=== PATIENT | female | born 1990 | race Caucasian/White ===

== ENCOUNTER 2025-08-18 10:15 | Outpatient (AMB) | payer BC, SELFPAY ==
[2025-08-18 10:36] VITALS: BP 104/72; PULSE 82; RESP 18; TEMP 36.7; O2SAT 97; BMI 33.7
--- NOTE | 2025-08-18 10:36 | OBCLNT_ITS ---
Vital Signs 08/18/25 10:36 Height 1.55 m Height Method Stated Weight 80.853 kg Weight Measurement Method Standing Scale BMI 33.7 BP 104/72 Blood Pressure Source Automatic Cuff Blood Pressure Location Right Upper Arm Position Sitting Respiration 18 Pulse 82 Pulse Source Monitor Temp 98.0 F Temp Source Temporal Artery Scan Pulse Oximetry (%) 97 Oxygen Delivery Method Room Air Allergies/Home Meds Allergies & Medications Allergies No Known Allergies Allergy (Verified 08/18/25 10:42) Medication Reconciliation hydrocodone 5 mg-acetaminophen 325 mg tablet 1 tab PO Q6H #20 tabs 03/03/21 [Rx Confirmed 08/18/25] Intake Visit Data Collection New Patient or Established: New Patient (never been to [facility]) Reason for Visit:: OBI TRANSFER Seen by Clinical Staff ONLY (RN/MA): No Director Of Curriculum Required: No Do You Feel Safe at Home: Yes Authorities Contacted: N/A PCP or OBGYN visit in last 3 months: No Hx Now: Yes Are you currently on any form of Control: No Pain Present Currently: Yes Pain Location: Abdomen Pain Scale Used: Bustamante-Sanabria/Numerical Pain scale:: 5 Smoking Status Smoking Status: Never smoker Immunizations Flu Vaccine in the Last 12 Months: No Flu Vaccine Exclusion Criteria: No Exclusion Criteria Questionnaires Covid-19 Vaccine Questionnaire Has patient been vacinated for Covid-19 Have you been vacinated for Covid-19: No PHQ-9 PHQ-2 Over the last 2 weeks, how often have you been bothered by any of the following problems? 1. Little interest or pleasure in doing things: not at all 2. Feeling down, depressed, or hopeless: not at all Total score: 0 PHQ-9 3. Trouble falling or staying asleep, or sleeping too much: Not at all 4. Feeling tired or having little energy: Not at all 5. Poor appetite or overeating: Not at all 6. Feeling bad about yourself - or that you are a failure or have let yourself or your family down: Not at all 7. Trouble concentrating on things, such as reading the newspaper or watching television: Not at all 8. Moving or speaking so slowly that other people could have noticed? - Or the opposite - being so fidgety or restless that you have been moving around a lot more than usual: not at all 9. Thoughts that you would be better off or of hurting yourself in some way: Not at all Total score: 0 If you checked off any problems, how difficult have these problems made it for you to do your work, take care of things at home, or get along with other people?: not difficult at all Source: Developed by Drs. Aaron Hansen, Dolores Mcnamara, Chapincito Cevallos and colleagues, with an educational arian from [employer]. Depression screen completed yes Social History Living Situation History Marital Status: Lives With: Family Housing: House Tobacco History Smoking Status: Never smoker Second Hand Smoke Exposure: No Alcohol History Alcohol Intake: Never Domestic Abuse History Do You Feel Safe at Home: Yes History of Present Illness HPI Narrative First appointment, cramping and clear liquid discharge resembling mucus, nausea and gagging all day Jody Rueda is a 27-year-old at 11 weeks and 2 days gestation based on last menstrual period of May 28, 2025, presenting for her first pr egnancy appointment. She reports experiencing cramping and clear liquid discharge that resembles mucus, with no associated blood. She is also experiencing nausea and gagging throughout the day but is able to keep food down and has not tried any home remedies for these symptoms. 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 She had a D&C procedure for her last miscarriage and is uncertain whether a recurrent miscarriage workup was completed. She demonstrates adherence to her prescribed progesterone regimen. She has a history of three previous pregnancies, all resulting in full-term vaginal births with living children. Her estimated due date for the current is March 04, 2026. The patient denies smoking, alcohol use, or recreational drug use. She reports no medical problems or known allergies. She is in a monogamous relationship and had a normal Pap smear in 2024 with no history of sexually transmitted diseases or fertility problems. Her genetic screening questionnaire was negative. Medical History: - No significant medical problems reported Surgical History: - Gallbladder surgery in 2020 - Dilation and curettage for miscarriage Obstetric History: - GPAL: A3 L3 - Three previous full-term vaginal births resulting in living children - Three miscarriages at 10 weeks, 12 weeks, and one prior to first child - Dilation and curettage performed for last miscarriage Medications: - Progesterone 200 mg by mouth at night Social History: - Does not work - In a monogamous relationship - Denies tobacco, alcohol, or illicit drug use Diagnostic Test Results and Labs: - Obstetric ultrasound: Gestational age 11 weeks 2 days, heart rate 151 bpm, normal round gestational sac, closed long cervix [employer]: Past Medical History Past Medical History: No Hx Neurological Disorders, No Hx Cardiac Disorders, No Hx Cancer, No Hx Blood Disorders, No Hx Gastrointestinal Disorders, No Hx Renal Disease, No Hx Diabetes Mellitus Type 1 and No Hx Diabetes Mellitus Type 2 OB Initial Visit OB Flowsheet OB Flowsheet Initial Weight: Not Recorded Date -?-?-?-?-?-?-?-?-?-?-?-?- EGA Weight BP Alb Glu CTX Pres Fundal ht FHR Mov Dilation Station Effacement Hx Notes Visit Note 08/18/25 -?-?-?-?-?-?-?-?-?-?-?-?- 11w 5d 80.853 kg 104/72 Pl see PN Menstrual History Menstrual reliability: definite Flow: normal Menstrual regularity: regular Monthly: Yes Age at menarche: 9 On control pills at conception: No OB History : 7 Para: 3 Hx Total # of Abortions (Spontaneous & Elective): 1 # of Living Children: 3 Delivery History 1st : Child's name: DARIN RUEDA date: 03/20/15 sex: female Gestational age at delivery (weeks): 40 Delivery type: vaginal weight (lbs): 3175.147 g History of depression before or after : No 2nd : Child's name: TONI RUEDA date: 09/04/17 sex: male Gestational age at delivery (weeks): 37 Delivery type: vaginal weight (lbs): 4082.331 g History of depression before or after : Yes 3rd : sex: male (EMILIA RUEDA) Gestational age at delivery (weeks): 38 Delivery type: vaginal weight (lbs): 3628.739 g History of depression before or after : No Infection History & Risk Evaluation History of STDs: none Patient or partner has history of Genital Herpes: No Genetic Screening & History Genetic Screening/Teratology Counseling - Includes patient, baby's father, or anyone in either family with: 1. Patient's age 35 years or older as of estimated date of delivery: Yes 2. Thalassemia (Romansh, Ecuadorean, Mediterranean, or Background); MCV less than 80: No 3. Neural Tube Defect (Meningomyelocele, Spina Bifida, or Anencephaly): No 4. Congenital Heart Defect: No 5. Down Syndrome: No 6. Eusebio-Sachs (Ashkenazi Alevism, Cajun, [place]): No 7. Bobo Disease (Ashkenazi Alevism): No 8. Familial Dysautonomia (Ashkenazi Alevism): No 9. Sickle Cell Disease or Trait (): No 10. Hemophilia or other blood disorders: No 11. Muscular Dystrophy: No 12. Cystic Fibrosis: No 13. Le[place]anau's Chorea: No 14. Mental Retardation/Autism: No 15. Other inherited genetic or chromosomal disorder: No 16. Maternal Metabolic Disorder (EG,TYPE 1 Diabetes, PKU): No 17. Patient or baby's father had a child with defects not listed above: No 18. Recurrent loss or a stillbirth: No 19. Medications (including supplements, vitamins, herbs or otc drugs)/illicit/recreational drugs/alcohol since last menstrual period: No 20. Any other: No Infection History Other (see comments) Source: [employer] Exam General General Appearance: alert, in no apparent distress and healthy appearing Head Head exam: atraumatic Neck Neck exam: Present normal inspection and trachea midline Chest Chest inspection: Present normal inspection and symmetric chest wall rise External exam: Present normal external exam; Absent tenderness Neuro Neurological exam: Present oriented X3 Psych Psychiatric exam: Present normal affect and normal mood Office Procedures [facility] LOC & Office Proc's Nursing/Assessment Patient Status: Initial/New Patient OB Clinic Nursing Assessment: Medication Reconciliation, Update PMH in EMR and Vital Signs OB Clinic Coordination of Care: Complex Care and Chronic Disease 1-5, Education Complex Pt/Fam, Consent,records obtained, informed consent, Lab and Imaging orders, Results/Orders obtained and Staff clarify orders Special Needs: Heart tones New Patient Charge New Patient Point Assignment: [id number] New Patient Point Charge: RESIDENTIAL COLLECTIONS Level 4 ([id number]) Assessment & Plan Diagnosis / Problem List (1) Supervision of high risk , unspecified, first trimester: Status: Acute (2) Recurrent loss: Status: Acute Plan Intrauterine 11 weeks 2 days Assessment: Patient is 4 para 3 at 11 weeks 2 days gestation based on last menstrual period of 05-28-2025 with estimated due date of 03-04-2026. Ultrasound confirms gestational age with normal heart rate of 151 bpm, normal round sac, and closed long cervix. Current appears viable with no observed miscarriage risk at this time. Plan: - Continue progesterone 200 mg orally at night until 15 weeks - Order initial OB and NIPT tests at [facility] - Genetic and gender testing as patient agreed - Follow-up in 4 weeks - Co-management with high-risk doctors at [facility] - Monitor for labor - Anatomy survey in second trimester History of recurrent loss Assessment: Patient has history of three miscarriages at 10 and 12 weeks, and one before her first child, with D&C performed for the last miscarriage. Currently on progesterone supplementation prescribed by previous provider due to this history. Uncertain if recurrent miscarriage workup was completed previously. Plan: - Continue progesterone 200 mg orally at night until 15 weeks - Co-management with high-risk doctors at [facility] First trimester symptoms Assessment: Patient reports cramping and clear liquid discharge resembling mucus without blood, along with nausea and gagging throughout the day but able to keep food down. These symptoms are consistent with normal first trimester changes. Plan: - No specific interventions discussed for current symptoms
== END 2025-08-18 11:10 | disposition home or self-care (01) ==
LOC: HODSOBC 10:15
PROVIDERS: Supervising Provider Obstetrics & Gynecology; Visit Provider Obstetrics & Gynecology
DX: O09.291 Supervision of pregnancy with other poor reproductive or obstetric history, first trimester (principal); O09.521 Supervision of elderly multigravida, first trimester; O26.21 Pregnancy care for patient with recurrent pregnancy loss, first trimester; Z3A.11 11 weeks gestation of pregnancy
CPT/HCPCS: 99204; G0463

== ENCOUNTER → 2025-08-18 | Outpatient (CLI) | payer BC, SELFPAY ==
[2025-08-18 12:04] LABS: Misc Send Out* See Sep Rpt
[2025-08-18 12:39] LABS: Collection Type, Urine Clean Catch; RBC,Urine 0 /hpf (0-3); WBC,Urine 0 /hpf (0-5)
[2025-08-18 13:32] LABS: Thyroid Stimulating Hormone 1.52 uIU/mL (0.55-4.78)
[2025-08-18 13:39] LABS: HIV (1&2) Antibody Rapid Non-Reactive
[2025-08-18 13:42] LABS: Bilirubin,Urine Negative (Negative); Blood,Urine Negative (Negative); Clarity,Urine Clear (Clear/Hazy); Color,Urine Lt-Yellow (Lt Yel-Yel); Culture Indicated,Urine Not Indicated; Glucose, Urine Negative (Negative); Ketones,Urine Negative (Negative); Leukocyte Esterase,Urine Positive (Negative); Nitrite,Urine Negative (Negative); PH,Urine 7.0 (5.0-7.0); Protein,Urine Negative (Neg - Trace); Specific Gravity,Urine 1.008 (1.001-1.035); Squamous Epithelial Cell,Urine 7 /hpf (0-5); Urobilinogen,Urine Negative mg/dL (0.0-1.0)
[2025-08-18 15:47] LABS: Chlamydia trachomatis PCR Negative (Not Detect); Neisseria Gonorrhoeae DNA PCR Negative (Not Detect); Trichomonas Negative (Negative)
[2025-08-18 18:45] LABS: Hepatitis B Surface Antigen Non Reactive (Non React)
[2025-08-18 21:51] LABS: Syphilis Nonreactive (Nonreactive)
[2025-08-19 14:51] LABS: Hepatitis C Antibody Non Reactive (Non React)
[2025-08-25 06:36] LABS: PTT-LA Screen 32 seconds (< OR = 40); dRVVT Screen 30 seconds (< OR = 45)
== END | disposition home or self-care (01) ==
PROVIDERS: PCP Family Medicine; Referring Provider Obstetrics & Gynecology; Visit Provider Obstetrics & Gynecology
DX: O09.91 Supervision of high risk pregnancy, unspecified, first trimester (principal); N96 Recurrent pregnancy loss
CPT/HCPCS: 36415; 81001; 84443; 85613; 85730; 86703; 86780; 86787; 86803; 86850; 86900; 86901; 87340; 87491; 87591; 87661